=== PATIENT | male | born 1970 | race Caucasian/White ===

== ENCOUNTER 2016-07-05 21:09 | Observation (INO) | payer OTHER ==
[2016-07-05] MEDS ORDERED: SODIUM CHLORIDE 0.9% 1,000 ML IV STA ×2 (21:46)
[2016-07-05] MEDS ORDERED: IPRATROPIUM-ALBUTEROL 3 ML NEB INHALATION STA (21:47)
--- NOTE | 2016-07-05 22:11 | ED ---
General Adult HPI - General Chief complaint: Weakness Stated complaint: enlarged heart sent by [facility] Time Seen by Provider: 07/05/16 21:40 Source: patient, RN notes reviewed, old records reviewed Mode of arrival: ambulatory Limitations: no limitations - History of Present Illness Initial comments: This is a 46-year-old male the ER for evaluation. Patient brought in for evaluation of altered mental status, friends and coworkers thinking that he is responding inappropriately or slow to respond. Patient does admit to history of TIAs and nerve type symptoms secondary to stroke. Patient denies any fevers or chest pain but has been feeling weak and fatigued lately. He does admit to weight gain, shortness of breath, exercise fatigue. Patient denies any medications does admit to being a smoker - Related Data Home Medications Medication Instructions Recorded Confirmed No Known Home Medications [No 07/07/16 07/07/16 Known Home Medications] Allergies Allergy/AdvReac Type Severity Reaction Status Date / Time No Known Allergies Allergy Verified 07/07/16 01:12 Review of Systems ROS Statement: Those systems with pertinent positive or pertinent negative responses have been documented in the HPI. ROS Other: All systems not noted in ROS Statement are negative. Past Medical History Past Medical History: Asthma, CVA/TIA, Sleep Apnea/CPAP/BIPAP Additional Past Medical History / Comment(s): CVA x1, TIA x5 History of Any Multi-Drug Resistant Organisms: None Reported Past Surgical History: No Surgical Hx Reported Past Psychological History: No Psychological Hx Reported Smoking Status: Current every day smoker Past Alcohol Use History: None Reported Past Drug Use History: None Reported - Past Family History Father Family Medical History: Cancer Additional Family Medical History / Comment(s): colon cancer and kidney failure - at 74 General Exam Limitations: no limitations General appearance: alert, in no apparent distress, obese Head exam: Present: atraumatic, normocephalic, normal inspection Eye exam: Present: normal appearance, PERRL, EOMI. Absent: scleral icterus, conjunctival injection, periorbital swelling ENT exam: Present: normal exam, mucous membranes moist Neck exam: Present: normal inspection. Absent: tenderness, meningismus, lymphadenopathy Respiratory exam: Present: normal lung sounds bilaterally. Absent: respiratory distress, wheezes, rales, rhonchi, stridor Cardiovascular Exam: Present: regular rate, normal rhythm, normal heart sounds. Absent: systolic murmur, diastolic murmur, rubs, gallop, clicks GI/Abdominal exam: Present: soft, normal bowel sounds. Absent: distended, tenderness, guarding, rebound, rigid Extremities exam: Present: normal inspection, full ROM, normal capillary refill. Absent: tenderness, pedal edema, joint swelling, calf tenderness Back exam: Present: normal inspection Neurological exam: Present: alert, oriented X3, CN II-XII intact Psychiatric exam: Present: normal affect, normal mood Skin exam: Present: warm, dry, intact, normal color. Absent: rash Course Vital Signs 07/05/16 07/05/16 07/05/16 21:16 22:00 22:16 Temperature 98.0 F Pulse Rate 87 90 90 Pulse Rate [ Right] Respiratory 18 Rate Blood Pressure 166/84 Blood Pressure [Right Arm] O2 Sat by Pulse 94 L Oximetry 07/05/16 07/06/16 07/06/16 22:53 01:22 02:30 Temperature 98.7 F Pulse Rate 87 87 Pulse Rate [ 86 Right] Respiratory 18 18 16 Rate Blood Pressure 129/60 114/59 Blood Pressure 148/78 [Right Arm] O2 Sat by Pulse 95 96 94 L Oximetry 07/06/16 02:53 Temperature 97.6 F Pulse Rate 84 Pulse Rate [ Right] Respiratory 16 Rate Blood Pressure 103/68 Blood Pressure [Right Arm] O2 Sat by Pulse 95 Oximetry EKG Findings - EKG Comments: EKG Findings:: EKG shows normal sinus limited to, HI 144, QRS 90, QTC 443 Medical Decision Making - Medical Decision Making 46 male to the ER for evaluation of weakness fatigue, cardiomegaly, patient be admitted for cardiac observation. Telemetry and serial troponins - Lab Data Result diagrams: 07/06/16 06:41 07/05/16 22:23 Lab Results 07/05/16 07/05/16 07/05/16 Range/Units 22:23 22:23 22:23 WBC 10.1 (3.8-10.6) k/uL RBC 4.66 (4.30-5.90) m/uL Hgb 15.1 (13.0-17.5) gm/dL Hct 42.1 (39.0-53.0) % MCV 90.3 (80.0-100.0) fL MCH 32.3 (25.0-35.0) pg MCHC 35.8 (31.0-37.0) g/dL RDW 12.5 (11.5-15.5) % Plt Count 191 (150-450) k/uL Neutrophils % 63 % Lymphocytes % 29 % Monocytes % 5 % Eosinophils % 1 % Basophils % 0 % Neutrophils # 6.4 (1.3-7.7) k/uL Lymphocytes # 2.9 (1.0-4.8) k/uL Monocytes # 0.5 (0-1.0) k/uL Eosinophils # 0.1 (0-0.7) k/uL Basophils # 0.0 (0-0.2) k/uL PT (9.0-12.0) sec INR (<1.1) APTT (22.0-30.0) sec Sodium 138 (137-145) mmol/L Potassium 3.9 (3.5-5.1) mmol/L Chloride 102 (98-107) mmol/L Carbon Dioxide 25 (22-30) mmol/L Anion Gap 11 mmol/L BUN 12 (9-20) mg/dL Creatinine 0.80 (0.66-1.25) mg/dL Est GFR (MDRD) Af Amer >60 (>60 ml/min/1.73 sqM) Est GFR (MDRD) Non-Af >60 (>60 ml/min/1.73 sqM) Glucose 172 H (74-99) mg/dL Calcium 8.7 (8.4-10.2) mg/dL Phosphorus 3.9 (2.5-4.5) mg/dL Magnesium 1.8 (1.6-2.3) mg/dL Total Bilirubin 0.3 (0.2-1.3) mg/dL AST 24 (17-59) U/L ALT 41 (21-72) U/L Alkaline Phosphatase 94 (38-126) U/L Total Creatine Kinase 175 H (55-170) U/L CK-MB (CK-2) 0.8 (0.0-2.4) ng/mL CK-MB (CK-2) Rel Index 0.5 Troponin I <0.012 (0.000-0.034) ng/mL NT-Pro-B Natriuret Pep pg/mL Total Protein 6.5 (6.3-8.2) g/dL Albumin 3.6 (3.5-5.0) g/dL TSH (0.465-4.680) mIU/L 07/05/16 07/05/16 07/05/16 Range/Units 22:23 22:23 22:23 WBC (3.8-10.6) k/uL RBC (4.30-5.90) m/uL Hgb (13.0-17.5) gm/dL Hct (39.0-53.0) % MCV (80.0-100.0) fL MCH (25.0-35.0) pg MCHC (31.0-37.0) g/dL RDW (11.5-15.5) % Plt Count (150-450) k/uL Neutrophils % % Lymphocytes % % Monocytes % % Eosinophils % % Basophils % % Neutrophils # (1.3-7.7) k/uL Lymphocytes # (1.0-4.8) k/uL Monocytes # (0-1.0) k/uL Eosinophils # (0-0.7) k/uL Basophils # (0-0.2) k/uL PT 9.7 (9.0-12.0) sec INR 0.9 (<1.1) APTT 24.3 (22.0-30.0) sec Sodium (137-145) mmol/L Potassium (3.5-5.1) mmol/L Chloride (98-107) mmol/L Carbon Dioxide (22-30) mmol/L Anion Gap mmol/L BUN (9-20) mg/dL Creatinine (0.66-1.25) mg/dL Est GFR (MDRD) Af Amer (>60 ml/min/1.73 sqM) Est GFR (MDRD) Non-Af (>60 ml/min/1.73 sqM) Glucose (74-99) mg/dL Calcium (8.4-10.2) mg/dL Phosphorus (2.5-4.5) mg/dL Magnesium (1.6-2.3) mg/dL Total Bilirubin (0.2-1.3) mg/dL AST (17-59) U/L ALT (21-72) U/L Alkaline Phosphatase (38-126) U/L Total Creatine Kinase (55-170) U/L CK-MB (CK-2) (0.0-2.4) ng/mL CK-MB (CK-2) Rel Index Troponin I (0.000-0.034) ng/mL NT-Pro-B Natriuret Pep 24 pg/mL Total Protein (6.3-8.2) g/dL Albumin (3.5-5.0) g/dL TSH 1.740 (0.465-4.680) mIU/L - Radiology Data Radiology results: report reviewed (Chest x-ray does redemonstrate mild cardiomegaly), image reviewed Critical Care Time Critical Care Time: Yes Total Critical Care Time: 31 Disposition Clinical Impression: Chest pain Disposition: ADMITTED IP TO THIS [facility] Condition: Good
[2016-07-05] MEDS ORDERED: HEPARIN SODIUM,PORCINE 5,000 UNIT/ML 1 ML VIAL IV ONE (22:45)
[2016-07-05] MEDS ORDERED: HEPARIN SODIUM,PORCINE/D5W PMX 25,000 UNIT in DEXTROSE/WATER 1 500ML.BAG IV SCH (22:45)
[2016-07-05] MEDS ORDERED: ASPIRIN 81 MG CHEW PO STA (22:45)
[2016-07-05] MEDS ORDERED: HEPARIN SODIUM,PORCINE 5,000 UNIT/ML 1 ML VIAL IV PRN (22:45)
[2016-07-05] MEDS ORDERED: NITROGLYCERIN SL TABS 0.4 MG TAB SUBLINGUAL PRN (22:45)
--- NOTE | 2016-07-05 22:54 | XR ---
EXAMINATION TYPE: XR chest 2V DATE OF EXAM: 07/05/2016 10:43 PM COMPARISON: NONE HISTORY: Weakness TECHNIQUE: Frontal and lateral views of the chest are obtained. FINDINGS: Heart and mediastinum are normal. Lungs are clear. Diaphragm is normal. Bony thorax is int act. IMPRESSION: Normal chest.
[2016-07-05 23:20] LABS: Basophils % (A) 0 %; CH 32.2; CHCM 35.8; Eosinophils # (A) 0.1 k/uL (0-0.7); Eosinophils % (A) 1 %; HCT 42.1 % (39.0-53.0); HDW 2.77; HGB 15.1 gm/dL (13.0-17.5); Luc # (Auto) 0.17; Luc % (Auto) 2; Lymphocytes # (A) 2.9 k/uL (1.0-4.8); Lymphocytes % (A) 29 %; MCH 32.3 pg (25.0-35.0); MCHC 35.8 g/dL (31.0-37.0); MCV 90.3 fL (80.0-100.0); Mean Platelet Volume 7.2; Monocytes # (A) 0.5 k/uL (0-1.0); Monocytes % (A) 5 %; Neutrophils # (A) 6.4 k/uL (1.3-7.7); Neutrophils % (A) 63 %; RBC 4.66 m/uL (4.30-5.90); RDW 12.5 % (11.5-15.5); WBC 10.1 k/uL (3.8-10.6); WBC (Perox) 9.49
[2016-07-05 23:30] LABS: Partial Thromboplastin Time 24.3 sec (22.0-30.0)
[2016-07-05 23:33] LABS: ALT 41 U/L (21-72); AST 24 U/L (17-59); Alkaline Phosphatase 94 U/L (38-126); Anion Gap 11 mmol/L; Blood Urea Nitrogen 12 mg/dL (9-20); Calcium 8.7 mg/dL (8.4-10.2); Carbon Dioxide 25 mmol/L (22-30); Chloride 102 mmol/L (98-107); Glucose 172 mg/dL (74-99); Magnesium 1.8 mg/dL (1.6-2.3); Non-African American GFR(MDRD) >60 (>60 ml/min/1.73 sqM); Phosphorous 3.9 mg/dL (2.5-4.5); Potassium 3.9 mmol/L (3.5-5.1); Sodium 138 mmol/L (137-145); Total Bilirubin 0.3 mg/dL (0.2-1.3); Total Protein 6.5 g/dL (6.3-8.2)
[2016-07-05 23:34] LABS: INR 0.9 (<1.1); Prothrombin Time 9.7 sec (9.0-12.0)
[2016-07-05 23:41] LABS: Creatine Kinase 175 U/L (55-170)
[2016-07-05 23:55] LABS: Creatine Kinase MB 0.8 ng/mL (0.0-2.4); Troponin I <0.012 ng/mL (0.000-0.034)
[2016-07-06] MEDS ORDERED: NALOXONE 0.4 MG/ML 1 ML VIAL IV PRN (02:11)
[2016-07-06 03:32] VITALS: BMI 56.2
[2016-07-06 07:28] LABS: Cholesterol 133 mg/dL (<200); HDL Cholesterol 25 mg/dL (40-60); Triglycerides 366 mg/dL (<150)
[2016-07-06 07:43] LABS: Creatine Kinase 162 U/L (55-170)
[2016-07-06 07:54] LABS: Creatine Kinase MB 0.9 ng/mL (0.0-2.4); Troponin I <0.012 ng/mL (0.000-0.034)
[2016-07-06 08:01] LABS: Mean Platelet Volume 8.7
[2016-07-06] MEDS ORDERED: ATORVASTATIN 80 MG TAB PO SCH (09:00)
[2016-07-06 11:56] LABS: Creatine Kinase 142 U/L (55-170)
[2016-07-06 12:00] LABS: Creatine Kinase MB 0.8 ng/mL (0.0-2.4); Troponin I <0.012 ng/mL (0.000-0.034)
--- NOTE | 2016-07-06 12:24 | P.CRDCN ---
History of Present Illness Consult date: 07/06/16 History of present illness: This is a 46-year-old gentleman who apparently was still confused and having some difficulty with his speech and dizzy. His coworker was concerned and was brought to the emergency room. Patient claims that he had a previous TIA. Patient is very sleepy but arousable. He denies any chest pain, shortness of breath or palpitations. His EKGs are normal. Cardiac enzymes are negative. Patient may need a neurology evaluation for possible TIA. No further cardiac workup at this time. If neurologist feels that he had a history of TIA and there is no source or cause for that, further evaluation may be considered. Review of Systems As per the chart Past Medical History Past Medical History: Asthma, CVA/TIA, Sleep Apnea/CPAP/BIPAP Additional Past Medical History / Comment(s): CVA x1, TIA x5 History of Any Multi-Drug Resistant Organisms: None Reported Past Surgical History: No Surgical Hx Reported Additional Past Anesthesia/Blood Transfusion Reaction / Comment(s): no surgeries Past Psychological History: No Psychological Hx Reported Smoking Status: Current every day smoker Past Alcohol Use History: None Reported Past Drug Use History: None Reported - Past Family History Father Family Medical History: Cancer Additional Family Medical History / Comment(s): colon cancer and kidney failure - at 74 Medications and Allergies Home Medications Medication Instructions Recorded Confirmed Type Albuterol Inhaler [Ventolin Hfa 1 - 2 puff INHALATION RT-QID PRN 07/05/16 History Inhaler] Aspirin 325 mg PO DAILY 07/05/16 07/05/16 History Allergies Allergy/AdvReac Type Severity Reaction Status Date / Time No Known Allergies Allergy Verified 07/05/16 22:22 Physical Exam Vitals: Vital Signs Temp Pulse Pulse Pulse Resp BP BP 07/06/16 08:00 98.2 F 84 18 117/74 07/06/16 04:00 97.8 F 84 16 07/06/16 03:41 89 16 07/06/16 02:53 97.6 F 84 16 103/68 07/06/16 02:30 98.7 F 86 16 BP Pulse Ox 07/06/16 08:00 94 L 07/06/16 04:00 119/82 93 L 07/06/16 03:41 07/06/16 02:53 95 07/06/16 02:30 148/78 94 L Intake and Output 07/05/16 07/06/16 07/06/16 22:59 06:59 14:59 Other: Voiding Method Toilet Toilet # Voids 2 Weight 188.241 kg GENERAL EXAM: Patient is alert and oriented and doesn't appear to be in any acute distress HEENT: Normocephalic. Normal reaction of pupils, equal size, normal range of extraocular motion. No erythema or exudates in the throat. NECK: No masses, no nuchal rigidity. CHEST: No chest wall deformity. LUNGS: Equal air entry with no crackles or wheeze. HEART: S1 and S2 normal with no audible mumurs or gallops. Regular rhythm, femorals equal on both sides.. ABDOMEN: No hepatosplenomegaly, normal bowel sounds, no guarding or rigidity. SKIN: No rashes CENTRAL NERVOUS SYSTEM: No focal deficits. EXTREMITIES: No cyanosis, clubbing or edema. Results 07/06/16 06:41 07/05/16 22:23 Cardiac Enzymes 07/06/16 07/06/16 Range/Units 06:41 10:57 CK-MB (CK-2) 0.9 0.8 (0.0-2.4) ng/mL Troponin I <0.012 <0.012 (0.000-0.034) ng/mL Coagulation 07/06/16 Range/Units 06:41 APTT 25.3 (22.0-30.0) sec Lipids 07/06/16 Range/Units 06:41 Triglycerides 366 H (<150) mg/dL Cholesterol 133 (<200) mg/dL HDL Cholesterol 25 L (40-60) mg/dL CBC 07/06/16 Range/Units 06:41 Plt Count 72 L D (150-450) k/uL Current Medications Generic Name Dose Route Start Last Admin Trade Name Freq PRN Reason Stop Dose Admin Aspirin 325 mg 07/07/16 09:00 Aspirin PO DAILY [facility] Atorvastatin Calcium 80 mg 07/06/16 09:00 Lipitor PO DAILY [facility] Heparin Sodium (Porcine) 0 unit 07/05/16 22:45 Heparin IV Q6HR PRN Low PTT Protocol Heparin Sodium/Dextrose 25,000 500 mls @ 20.33 mls/hr 07/05/16 22:45 01:10 unit/ IV Solution IV 5.31 units/kg/hr .Q24H LAVELL 20 mls/hr Protocol Administration 5.4 UNITS/KG/HR Naloxone HCl 0.2 mg 07/06/16 02:11 Narcan IV Q2M PRN Opioid Reversal Nitroglycerin 0.4 mg 07/05/16 22:45 Nitrostat SUBLINGUAL Q5M PRN Chest Pain Intake and Output 07/05/16 07/06/16 07/06/16 22:59 06:59 14:59 Other: Voiding Method Toilet Toilet # Voids 2 Weight 188.241 kg 07/06/16 06:41 EKG Interpretations (text) Sinus rhythm Assessment and Plan (1) Altered mental status Status: Acute (2) Dizziness Status: Acute (3) History of TIA (transient ischemic attack) Status: Acute Plan: I recommend a neurology evaluation. If there is a real TIA and no causes established, patient may be considered for long-term monitoring and also [facility]. No further cardiac workup at this time until neurology evaluation is done. We' ll follow as needed
[2016-07-06 16:42] VITALS: PULSE 93
[2016-07-06] MEDS ORDERED: AMOXIC-POT CLAV 875-125MG 1 EACH TAB PO STA (18:38)
[2016-07-06 19:49] VITALS: BP 138/80; RESP 18; TEMP 98
--- NOTE | 2016-07-07 08:16 | HP ---
DATE OF ADMISSION: 07/06/2016 CHIEF COMPLAINT: Dizziness, tiredness, and short of breath. HISTORY OF PRESENT ILLNESS: Mr. Goode is a 46-year-old male with a known history of obstructive sleep apnea on CPAP at home, morbid obesity, nicotine addiction, history of multiple transient ischemic attacks in the past, with work-up negative about a year back including [facility]. He came to the hospital with complaints of generalized weakness and tiredness since last Saturday. Patient apparently has been sick for the past one week and is just recovering from an upper respiratory infection at home. Patient went to the clinic where he had a chest x-ray and was told that he had cardiomegaly and was referred to the hospital. The chest x-ray here does not show any cardiomegaly. Otherwise, denied any fever or chills. No nausea or vomiting. Patient did complain of earache and off balance while in the ER. He was admitted to the hospital for further neurological evaluation. The patient denied any recent travel or sick contacts at home. PAST MEDICAL HISTORY: Asthma, cerebrovascular accident/transient ischemic attack with no residual weakness. History of sleep apnea, on CPAP at home, morbid obesity. PAST SURGICAL HISTORY: None. SOCIAL HISTORY: Patient is currently an everyday smoker, smokes about 1/2 pack per day. Denied alcohol, drugs or IVDU. FAMILY HISTORY: Denied any history of hypertension, premature heart disease in the family or diabetes mellitus. ALLERGIES: No known drug allergies. Home medications include albuterol inhaler and aspirin. PHYSICAL EXAMINATION: A 46-year-old male, morbidly obese, lying in the bed comfortably, awake, alert, oriented, x3, appears to be in no apparent distress. VITALS: Blood pressure is 129/69, pulse is 86, respirations 18, temperature afebrile, pulse ox 92% on room air. HEENT: Atraumatic, normocephalic. NECK: Supple. No JVD. CVS: S1, S2 heard. No murmurs or gallops. LUNGS: Bilateral air entry is present. Rhonchi positive. Nonlabored breathing. ABDOMEN: Soft, nontender. Bowel sounds present. [employer] SAL[employer] REPRESENTATIVE: Awake, alert, oriented x3. No focal deficits. EXTREMITIES: No. No clubbing or cyanosis. PSYCHIATRIC: Cooperative. LABORATORY DATA: WBC 10.1, hemoglobin 17.1, platelets 191, INR 0.9, sodium 138, potassium 3.9, chloride 102, bicarb is 25. BUN 12, creatinine 0.80. Blood sugar 172. Liver enzymes are not elevated. Troponin x3 negative. NT-proBNP 24, triglyceride 366, LDL is 35, ( ) 1.7. IMPRESSION: 1. Generalized weakness and tiredness, likely sequelae from previous upper respiratory infection. 2. Acute tracheobronchitis and possible sinusitis. 3. Morbid obesity. 4. Nicotine addiction. 5. History of cerebrovascular accident x1. 6. History of transient ischemic attack x5. 7. Obstructive sleep apnea on CPAP at home. DISCUSSION AND PLAN: Patient will be continued on telemetry monitoring. The patient will be started on antibiotics in the form of Augmentin. Her symptoms are unlikely due to transient ischemic attack. No focal neurologic deficit is noted. Further recommendations based on the clinical course.
[2016-07-07] MEDS ORDERED: ASPIRIN 325 MG TAB PO SCH (09:00)
--- NOTE | 2016-07-07 16:06 | DS ---
DATE OF ADMISSION: 07/06/2016 DATE OF DISCHARGE: 07/06/2016 DISCHARGE DIAGNOSES: 1. Acute metabolic encephalopathy possibly due to infection. 2. Acute tracheobronchitis and possible sinusitis. 3. Earache and off balance. 4. Recent URI. 5. Generalized weakness and tiredness unlikely transient ischemic attack. 6. Nicotine addiction. 7. History of transient ischemic attack and cerebrovascular accident history in the past. No residual weakness. 8. Morbid obesity. 9. Obstructive sleep apnea on CPAP at home. HOSPITAL COURSE: Mr. Goode is a 46 -year-old male with the above medical problems admitted to hospital with generalized weakness and tiredness and also the patient is recovering from recent upper respiratory tract infection. Patient did complain of earache as well and off balance here in the ER. Admitted to the hospital for evaluation by cardiology and chest x-ray showed no cardiomegaly, as he was told at the urgent care center. Otherwise, the patient was on tele monitoring. Serial EKGs and troponins are negative. Patient does have elevated triglycerides. Patient was advised to do some exercise and patient was started on antibiotics in the form of Augmentin. Patient felt better. He will be discharged to complete antibiotic course and the patient was counselled extensively for smoking cessation and follow-up with his primary care physician in 1 to 3 days. Patient stable for discharge home. DISCHARGE PHYSICAL EXAMINATION: 46 -year-old male lying in bed comfortably. Awake, alert, oriented times three. Appears to be in no apparent distress. VITALS: Blood pressure 129/79, pulse is 93, respirations 16, temperature afebrile, pulse ox 93% on room air. LABORATORY DATA: Reviewed. Discharge physical examination done. DISCHARGE MEDICATIONS include: 1. Augmentin 875/125, 1 tablet p.o. q.12 hourly pain for 7 days. 2. Albuterol inhaler 2 puffs q.6 hourly p.r.n. for short of breath. 3. Decreased aspirin 325 mg p.o. daily. Patient will be discharged home in stable condition. Activity as tolerated. Heart healthy diet. Follow with primary care physician Audrey Bai.
== END 2016-07-06 07:45 | disposition home or self-care (01) ==
LOC: EC 21:09 → 3OBS 07-06 02:11
PROVIDERS: ADMIT Hospitalist; ATTEND Hospitalist
DX: G93.41 Metabolic encephalopathy (principal); J20.9 Acute bronchitis, unspecified; H92.09 Otalgia, unspecified ear; J45.909 Unspecified asthma, uncomplicated; F17.200 Nicotine dependence, unspecified, uncomplicated; E66.01 Morbid (severe) obesity due to excess calories; Z68.43 Body mass index [BMI] 50.0-59.9, adult; G47.33 Obstructive sleep apnea (adult) (pediatric); Z99.89 Dependence on other enabling machines and devices; Z86.73 Personal history of transient ischemic attack (TIA), and cerebral infarction without residual deficits; Z79.82 Long term (current) use of aspirin; E78.1 Pure hyperglyceridemia
CPT/HCPCS: 96376 ×2; 96360; 96361 ×4; 96365 ×2; 96366 ×2; 99291; 36415; 94640; 93005; 83880; 80061; 80053; 84443; 82550 ×2; 82553 ×2; 83735; 84100; 84484 ×2; 85025; 85049; 85610; 85730 ×2; 71020; G0378; J1644 ×2

== ENCOUNTER 2016-07-07 01:06 | Emergency (ER) | payer OTHER ==
[2016-07-07 01:12] VITALS: BP 141/66; PULSE 89; RESP 20; TEMP 98.2
[2016-07-07] MEDS ORDERED: TOPICAL SKIN ADHESIVE 1 EACH AMP TOPICAL ONE (01:49)
--- NOTE | 2016-07-07 01:53 | ED ---
Wound/Laceration HPI - General Chief Complaint: Wound/Laceration Stated Complaint: arm lac Time Seen by Provider: 07/07/16 01:31 Source: patient, RN notes reviewed Mode of arrival: ambulatory Limitations: no limitations - History of Present Illness Initial Comments: Patient is a 46-year-old male chief complaint of right elbow laceration after hitting it on a cabinet. He states tetanus is up-to-date. Patient states that he was recently discharged after receiving IV heparin for NSTEMI yesterday. Patient states he does not know how deep the cut is. States it continued to bleed through multiple gauze pads. - Related Data Home Medications Medication Instructions Recorded Confirmed No Known Home Medications [No 07/07/16 07/07/16 Known Home Medications] Allergies Allergy/AdvReac Type Severity Reaction Status Date / Time No Known Allergies Allergy Verified 07/07/16 01:12 Review of Systems ROS Statement: Those systems with pertinent positive or pertinent negative responses have been documented in the HPI. ROS Other: All systems not noted in ROS Statement are negative. Past Medical History Past Medical History: Asthma, CVA/TIA, Sleep Apnea/CPAP/BIPAP Additional Past Medical History / Comment(s): CVA x1, TIA x5 History of Any Multi-Drug Resistant Organisms: None Reported Past Surgical History: No Surgical Hx Reported Additional Past Anesthesia/Blood Transfusion Reaction / Comment(s): no surgeries Past Psychological History: No Psychological Hx Reported Smoking Status: Current every day smoker Past Alcohol Use History: None Reported Past Drug Use History: None Reported - Past Family History Father Family Medical History: Cancer Additional Family Medical History / Comment(s): colon cancer and kidney failure - at 74 General Exam - General Exam Comments Initial Comments: Pleasant morbidly obese 46 year old male, no distress. Limitations: no limitations General appearance: alert, in no apparent distress Head exam: Present: atraumatic, normocephalic, normal inspection Eye exam: Present: normal appearance, PERRL, EOMI. Absent: scleral icterus, conjunctival injection, periorbital swelling ENT exam: Present: normal exam, mucous membranes moist Neck exam: Present: normal inspection. Absent: tenderness, meningismus, lymphadenopathy Respiratory exam: Present: normal lung sounds bilaterally. Absent: respiratory distress, wheezes, rales, rhonchi, stridor Cardiovascular Exam: Present: regular rate, normal rhythm, normal heart sounds. Absent: systolic murmur, diastolic murmur, rubs, gallop, clicks GI/Abdominal exam: Present: soft, normal bowel sounds. Absent: distended, tenderness, guarding, rebound, rigid Extremities exam: Present: normal inspection, full ROM, normal capillary refill , other (1 cm laceration on left elbow. ). Absent: tenderness, pedal edema, joint swelling, calf tenderness Back exam: Present: normal inspection Neurological exam: Present: alert, oriented X3, CN II-XII intact Psychiatric exam: Present: normal affect, normal mood Skin exam: Present: warm, dry, intact, normal color. Absent: rash Course Vital Signs 07/07/16 01:09 Temperature 98.2 F Pulse Rate 89 Respiratory 20 Rate Blood Pressure 141/66 O2 Sat by Pulse 93 L Oximetry Medical Decision Making - Medical Decision Making Patient is a 46-year-old male chief complaint of right elbow laceration after hitting it on a cabinet. He states tetanus is up-to-date. Patient states that he was recently discharged after receiving IV heparin for NSTEMI yesterday. Patient laceration measures 1cm. Bleeding controlled at this time. Wound was cleaned. Patient wound closed with dermabond, discussed keeping it covered. Discussed monitor for signs of infection. Patient agrees to treatment plan and will comply. Disposition Clinical Impression: Forearm laceration Disposition: HOME SELF-CARE Condition: Good Instructions: Skin Adhesive Care (ED) Additional Instructions: Please leave wound covered for the first 24-48 hours and then leave open to air after that time. Please use clean soap and water. Please watch for any signs of infection which may include but not limited to increased pain, swelling , redness, fever or chills. Please return to the emergency room if any signs of infection do occur. Please return to the emergency room for any other concerns or complications. Referrals: Audrey Bai MD [Primary Care Provider] - 1-2 days Time of Disposition: 01:52
== END 2016-07-07 02:10 | disposition home or self-care (01) ==
LOC: EC 01:06
DX: S51.811A Laceration without foreign body of right forearm, initial encounter (principal); F17.200 Nicotine dependence, unspecified, uncomplicated; W22.03XA Walked into furniture, initial encounter; Y92.009 Unspecified place in unspecified non-institutional (private) residence as the place of occurrence of the external cause
CPT/HCPCS: 99282

== ENCOUNTER 2016-07-25 21:18 | Inpatient (IN) | payer OTHER ==
[2016-07-25 22:46] LABS: Basophils # (A) 0.1 k/uL (0-0.2); Basophils % (A) 1 %; CH 32.6; CHCM 34.8; Eosinophils # (A) 0.1 k/uL (0-0.7); Eosinophils % (A) 1 %; HCT 46.3 % (39.0-53.0); HDW 2.48; HGB 15.6 gm/dL (13.0-17.5); Luc # (Auto) 0.21; Luc % (Auto) 2; Lymphocytes # (A) 2.9 k/uL (1.0-4.8); Lymphocytes % (A) 22 %; MCH 31.7 pg (25.0-35.0); MCHC 33.7 g/dL (31.0-37.0); MCV 94.1 fL (80.0-100.0); Mean Platelet Volume 6.6; Monocytes # (A) 0.6 k/uL (0-1.0); Monocytes % (A) 5 %; Neutrophils # (A) 9.2 k/uL (1.3-7.7); Neutrophils % (A) 70 %; RBC 4.92 m/uL (4.30-5.90); RDW 12.8 % (11.5-15.5); WBC 13.1 k/uL (3.8-10.6); WBC (Perox) 12.53
[2016-07-25 22:54] LABS: Partial Thromboplastin Time 23.6 sec (22.0-30.0); Prothrombin Time 9.9 sec (9.0-12.0)
--- NOTE | 2016-07-25 22:57 | CT ---
EXAM: CT Head Without Intravenous Contrast CLINICAL HISTORY: Reason: Neuro Deficits TECHNIQUE: Axial computed tomography images of the head/brain without intravenous contrast. CTDI is 60.3 mGy and DLP is 1144.7 mGy-cm This CT exam was performed using one or more of the following dose reduction techniques: automated exposure control, adjustment of the mA and/or kV according to patient size, and/or use of iterative reconstruction technique. Coronal and sagittal reformatted images were created and reviewed. COMPARISON: No relevant prior studies available. FINDINGS: Brain: Old right basal ganglia infarct. No evolving territorial infarction. Mild chronic small vessel ischemic change. No hemorrhage. No mass effect or edema. Ventricles: Unremarkable. No ventriculomegaly. Bones/joints: Unremarkable. No acute fracture. Soft tissues: Unremarkable. Sinuses: Unremarkable as visualized. No acute sinusitis. Mastoid air cells: Unremarkable as visualized. No mastoid effusion. IMPRESSION: Old right basal ganglia infarct. No acute intracranial abnormality.
[2016-07-25 23:01] LABS: ALT 43 U/L (21-72); AST 22 U/L (17-59); Alkaline Phosphatase 88 U/L (38-126); Anion Gap 9 mmol/L; Blood Urea Nitrogen 15 mg/dL (9-20); Calcium 8.7 mg/dL (8.4-10.2); Carbon Dioxide 28 mmol/L (22-30); Chloride 102 mmol/L (98-107); Glucose 155 mg/dL (74-99); Non-African American GFR(MDRD) >60 (>60 ml/min/1.73 sqM); Potassium 4.1 mmol/L (3.5-5.1); Sodium 139 mmol/L (137-145); Total Bilirubin 0.4 mg/dL (0.2-1.3)
[2016-07-25 23:03] LABS: Creatine Kinase 116 U/L (55-170)
[2016-07-25 23:16] LABS: Creatine Kinase MB 0.6 ng/mL (0.0-2.4); Troponin I <0.012 ng/mL (0.000-0.034)
--- NOTE | 2016-07-25 23:24 | XR ---
EXAM: XR Chest, 2 Views CLINICAL HISTORY: Reason: altered mental status TECHNIQUE: Frontal and lateral views of the chest. COMPARISON: CXR 07/05/16 FINDINGS: Lungs: Unremarkable. No consolidation. Pleural space: Unremarkable. No pneumothorax. Heart: Unremarkable. No cardiomegaly. Mediastinum: Unremarkable. Bones/joints: Unremarkable. IMPRESSION: Unremarkable chest x-rays.
[2016-07-25] MEDS ORDERED: ALPRAZolam 0.25 MG TAB PO PRN (23:47)
[2016-07-25] MEDS ORDERED: ACETAMINOPHEN TAB 500 MG TAB PO PRN (23:47)
--- NOTE | 2016-07-25 23:49 | ED ---
Eye Problem HPI - General Chief complaint: Eye Problems Stated complaint: Eye Problem Time Seen by Provider: 07/25/16 22:00 Source: patient, RN notes reviewed Mode of arrival: ambulatory Limitations: no limitations - History of Present Illness Initial comments: This is a 46-year-old male with a history of sick CVA is noted past who presents with complaints of waking up this way with double vision. He states when he went to bed last evening around 2 AM he was fine when he woke up at 8 AM this morning he had double vision with certain eye movements. He states with each eye individually time when he puts both eyes together he has blurry vision he denies any loss of function is upper or lower extremities is no other complaints at this time no fevers chills sweats no trauma no headaches. chief complaint: vision change - Related Data Home Medications Medication Instructions Recorded Confirmed Aspirin 325 mg PO DAILY 07/25/16 07/25/16 Azithromycin [Zithromax] 250 mg PO DIRECTED 07/25/16 07/25/16 Omeprazole 20 mg PO AC-BID 07/25/16 07/25/16 Allergies Allergy/AdvReac Type Severity Reaction Status Date / Time heparin AdvReac passed out Verified 07/25/16 22:09 Review of Systems ROS Statement: Those systems with pertinent positive or pertinent negative responses have been documented in the HPI. ROS Other: All systems not noted in ROS Statement are negative. Past Medical History Past Medical History: Asthma, CVA/TIA, Sleep Apnea/CPAP/BIPAP Additional Past Medical History / Comment(s): CVA x1, TIA x5 History of Any Multi-Drug Resistant Organisms: None Reported Past Surgical History: No Surgical Hx Reported Additional Past Anesthesia/Blood Transfusion Reaction / Comment(s): no surgeries Past Psychological History: No Psychological Hx Reported Smoking Status: Current every day smoker Past Alcohol Use History: None Reported Past Drug Use History: None Reported - Past Family History Father Family Medical History: Cancer Additional Family Medical History / Comment(s): colon cancer and kidney failure - at 74 General Exam - General Exam Comments Initial Comments: This is a well-developed well-nourished obese male he is awake alert oriented 3 Limitations: no limitations General appearance: alert, in no apparent distress Head exam: Present: atraumatic, normocephalic, normal inspection Eye exam: Present: normal appearance, PERRL, EOMI. Absent: scleral icterus, conjunctival injection, periorbital swelling ENT exam: Present: normal exam, mucous membranes moist Neck exam: Present: normal inspection. Absent: tenderness, meningismus, lymphadenopathy Respiratory exam: Present: normal lung sounds bilaterally. Absent: respiratory distress, wheezes, rales, rhonchi, stridor Cardiovascular Exam: Present: regular rate, normal rhythm, normal heart sounds. Absent: systolic murmur, diastolic murmur, rubs, gallop, clicks GI/Abdominal exam: Present: soft, normal bowel sounds, other (Obese abdomen). Absent: distended, tenderness, guarding, rebound, rigid Extremities exam: Present: normal inspection, full ROM, normal capillary refill. Absent: tenderness, pedal edema, joint swelling, calf tenderness Back exam: Present: normal inspection Neurological exam: Present: alert, oriented X3, CN II-XII intact, other (He does demonstrate double vision was seen in horizontal finger a little bit higher partially in the left eye the bit lower in the right eye. Otherwise no other abnormalities. ) Psychiatric exam: Present: normal affect, normal mood Skin exam: Present: warm, dry, intact, normal color. Absent: rash Course Vital Signs 07/25/16 21:26 Temperature 97.8 F Pulse Rate 93 Respiratory 18 Rate Blood Pressure 131/87 O2 Sat by Pulse 96 Oximetry Medical Decision Making - Medical Decision Making I did discuss findings with the patient and with Dr. Tran who did come to the emergency department to see the patient patient be admitted evidence of a CVA no intervention is indicated at this time. Neurology will be consulted. - Lab Data Result diagrams: 07/25/16 22:34 07/25/16 22:34 Lab Results 07/25/16 07/25/16 07/25/16 Range/Units 22:34 22:34 22:34 WBC 13.1 H (3.8-10.6) k/uL RBC 4.92 (4.30-5.90) m/uL Hgb 15.6 (13.0-17.5) gm/dL Hct 46.3 (39.0-53.0) % MCV 94.1 (80.0-100.0) fL MCH 31.7 (25.0-35.0) pg MCHC 33.7 (31.0-37.0) g/dL RDW 12.8 (11.5-15.5) % Plt Count 222 D (150-450) k/uL Neutrophils % 70 % Lymphocytes % 22 % Monocytes % 5 % Eosinophils % 1 % Basophils % 1 % Neutrophils # 9.2 H (1.3-7.7) k/uL Lymphocytes # 2.9 (1.0-4.8) k/uL Monocytes # 0.6 (0-1.0) k/uL Eosinophils # 0.1 (0-0.7) k/uL Basophils # 0.1 (0-0.2) k/uL PT (9.0-12.0) sec INR (<1.1) APTT (22.0-30.0) sec Sodium 139 (137-145) mmol/L Potassium 4.1 (3.5-5.1) mmol/L Chloride 102 (98-107) mmol/L Carbon Dioxide 28 (22-30) mmol/L Anion Gap 9 mmol/L BUN 15 (9-20) mg/dL Creatinine 0.88 (0.66-1.25) mg/dL Est GFR (MDRD) Af Amer >60 (>60 ml/min/1.73 sqM) Est GFR (MDRD) Non-Af >60 (>60 ml/min/1.73 sqM) Glucose 155 H (74-99) mg/dL Calcium 8.7 (8.4-10.2) mg/dL Total Bilirubin 0.4 (0.2-1.3) mg/dL AST 22 (17-59) U/L ALT 43 (21-72) U/L Alkaline Phosphatase 88 (38-126) U/L Total Creatine Kinase 116 (55-170) U/L CK-MB (CK-2) 0.6 (0.0-2.4) ng/mL CK-MB (CK-2) Rel Index 0.5 Troponin I <0.012 (0.000-0.034) ng/mL Total Protein 7.0 (6.3-8.2) g/dL Albumin 3.9 (3.5-5.0) g/dL 07/25/16 Range/Units 22:34 WBC (3.8-10.6) k/uL RBC (4.30-5.90) m/uL Hgb (13.0-17.5) gm/dL Hct (39.0-53.0) % MCV (80.0-100.0) fL MCH (25.0-35.0) pg MCHC (31.0-37.0) g/dL RDW (11.5-15.5) % Plt Count (150-450) k/uL Neutrophils % % Lymphocytes % % Monocytes % % Eosinophils % % Basophils % % Neutrophils # (1.3-7.7) k/uL Lymphocytes # (1.0-4.8) k/uL Monocytes # (0-1.0) k/uL Eosinophils # (0-0.7) k/uL Basophils # (0-0.2) k/uL PT 9.9 (9.0-12.0) sec INR 1.0 (<1.1) APTT 23.6 (22.0-30.0) sec Sodium (137-145) mmol/L Potassium (3.5-5.1) mmol/L Chloride (98-107) mmol/L Carbon Dioxide (22-30) mmol/L Anion Gap mmol/L BUN (9-20) mg/dL Creatinine (0.66-1.25) mg/dL Est GFR (MDRD) Af Amer (>60 ml/min/1.73 sqM) Est GFR (MDRD) Non-Af (>60 ml/min/1.73 sqM) Glucose (74-99) mg/dL Calcium (8.4-10.2) mg/dL Total Bilirubin (0.2-1.3) mg/dL AST (17-59) U/L ALT (21-72) U/L Alkaline Phosphatase (38-126) U/L Total Creatine Kinase (55-170) U/L CK-MB (CK-2) (0.0-2.4) ng/mL CK-MB (CK-2) Rel Index Troponin I (0.000-0.034) ng/mL Total Protein (6.3-8.2) g/dL Albumin (3.5-5.0) g/dL - Radiology Data Radiology results: report reviewed (Review the x-ray shows no acute findings. CT shows old right basal ganglia infarct no acute abnormalities.), image reviewed Disposition Clinical Impression: CVA (cerebral vascular accident) Disposition: ADMITTED IP TO THIS HOSP Condition: Stable
[2016-07-26 06:35] LABS: Basophils # (A) 0.1 k/uL (0-0.2); Basophils % (A) 1 %; CH 32.5; CHCM 34.2; Eosinophils # (A) 0.1 k/uL (0-0.7); Eosinophils % (A) 1 %; HCT 45.8 % (39.0-53.0); HDW 2.49; HGB 15.2 gm/dL (13.0-17.5); Luc # (Auto) 0.15; Luc % (Auto) 1; Lymphocytes # (A) 2.6 k/uL (1.0-4.8); Lymphocytes % (A) 24 %; MCH 31.6 pg (25.0-35.0); MCHC 33.2 g/dL (31.0-37.0); MCV 95.3 fL (80.0-100.0); Mean Platelet Volume 6.5; Monocytes # (A) 0.5 k/uL (0-1.0); Monocytes % (A) 4 %; Neutrophils # (A) 7.4 k/uL (1.3-7.7); Neutrophils % (A) 68 %; RBC 4.81 m/uL (4.30-5.90); RDW 12.9 % (11.5-15.5); WBC 10.8 k/uL (3.8-10.6)
[2016-07-26 06:50] LABS: Anion Gap 10 mmol/L; Blood Urea Nitrogen 16 mg/dL (9-20); Calcium 8.6 mg/dL (8.4-10.2); Carbon Dioxide 27 mmol/L (22-30); Chloride 104 mmol/L (98-107); Cholesterol 155 mg/dL (<200); Glucose 126 mg/dL (74-99); HDL Cholesterol 28 mg/dL (40-60); Non-African American GFR(MDRD) >60 (>60 ml/min/1.73 sqM); Potassium 4.2 mmol/L (3.5-5.1); Sodium 141 mmol/L (137-145); Triglycerides 231 mg/dL (<150)
[2016-07-26] MEDS ORDERED: NON-FORMULARY DRUG (Omeprazole [Omeprazole] 20 MG) PO SCH (07:30)
[2016-07-26] MEDS ORDERED: ASPIRIN 325 MG TAB PO SCH (09:00)
--- NOTE | 2016-07-26 09:20 | HP ---
DATE OF ADMISSION: CHIEF COMPLAINT: Difficulty in vision on the right eye. HISTORY OF PRESENT ILLNESS: This 46-year-old gentleman with a past medical history of multiple medical problems being followed by Dr. Audrey Bai in the outpatient setting had past medical history of multiple strokes, history of CVA, TIA, asthma, sleep apnea. The patient apparently continues to smoke and patient is complaining of significant visual loss on the right eye after waking up today and the patient came to [facility] and admitted for further evaluation and treatment. A CAT scan of the brain was done, which showed old right basal ganglia infarct and no acute abnormality. A chest x-ray was also done which is unremarkable. There is no history of fever, rigors or chills. No history of headache, loss of consciousness or seizures. PAST MEDICAL HISTORY: History of multiple CVA, TIA, asthma, sleep apnea, obesity. Medications prior to admission include home medications : 1. Zithromax 250 mg p.r.n. 2. Omeprazole 20 mg b.i.d. 3. Aspirin 325 mg daily. ALLERGIES: HEPARIN. FAMILY HISTORY: History of cancer, colon cancer, kidney failure. SOCIAL HISTORY: History of continued ongoing smoking. No history of alcohol intake. REVIEW OF SYSTEMS: ENT: As mentioned earlier. CARDIOVASCULAR: No angina or palpitations. RESPIRATORY: No cough. GI: No nausea. : No dysuria. NERVOUS SYSTEM: No numbness or weakness. ALLERGY/IMMUNOLOGY: No asthma or hayfever. MUSCULOSKELETAL: As mentioned earlier. HEMATOLOGY/ONCOLOGY: No history of anemia. ENDOCRINE: No history of diabetes mellitus or hypothyroidism. CONSTITUTIONAL: As mentioned earlier. DERMATOLOGY: Negative. RHEUMATOLOGY: Negative. PSYCHIATRY: As mentioned earlier. PHYSICAL EXAMINATION: The patient is alert and oriented x3. Pulse 93, blood pressure 131/87, respirations 18, temperature 97.8, pulse ox 96% on room air. HEENT: Conjunctivae normal. Oral mucosa moist. NECK: No jugular venous distention. No carotid bruit. No lymph node enlargement. CARDIOVASCULAR: S1 and S2, muffled. No S3, no S4. RESPIRATORY: Breath sounds diminished at the bases. A few scattered rhonchi, no crackles. ABDOMEN: Soft, obese, nontender. No mass palpable. LEGS: No edema, no swelling. NERVOUS SYSTEM: Higher function as mentioned. Moves all 4 limbs. No focal motor deficits. Cranial nerves, vision diminished in the right eye and also significant diminishment of the eye movements also. LYMPHATICS: No lymphadenopathy of neck, axillae or groin. SKIN: No ulcers, rashes or bleeding. LABS: WBC 13.1, hemoglobin 15.6. Glucose 155. ASSESSMENT: 1. Possible acute cerebrovascular accident and rule out brain stem stroke. 2. Rule out demyelinating illness. 3. History of cerebrovascular accident, transient ischemic attack. 4. Continued ongoing nicotine dependence. 5. Obesity with body mass index of 57.6. 6. Increased random blood sugar. 7. Increased WBC. 8. History of asthma. 9. History of sleep apnea. 10. History of cerebrovascular accident, transient ischemic attack. 11. History of nicotine dependence. 12. FULL CODE. 13. Super morbid obesity with body mass index of 57.6. RECOMMENDATIONS AND DISCUSSION: This 46-year-old gentleman who presented with multiple complex medical issues, we will monitor the patient closely. Continue the current medications. Continue symptomatic treatment. Will obtain ophthalmology evaluation and as well as we will also obtain MRI of the brain and antiplatelet agents. complete neurovascular workup, neurology consultation, neuro checks. Prognosis guarded because of multiple complex medical issues. Smoking cessation has been recommended strongly with the family as well as. Continue to monitor. Further recommendations to follow. See orders for further details. Prognosis guarded. MTDD
--- NOTE | 2016-07-26 09:51 | US ---
EXAMINATION TYPE: US carotid duplex BILAT DATE OF EXAM: 07/26/2016 8:05 AM COMPARISON: NONE CLINICAL HISTORY: stroke. EXAM MEASUREMENTS: RIGHT: Peak Systolic Velocity (PSV) cm/sec ----- Right CCA: 71.6 ----- Right ICA: 63.8 ----- Right ECA: 82.7 ICA/CCA ratio: 0.9 RIGHT: End Diastole cm/sec ----- Right CCA: 15.5 ----- Right ICA: 20.7 ----- Right ECA: 18.0 LEFT: Peak Systolic Velocity (PSV) cm/sec ----- Left CCA: 69.3 ----- Left ICA: 85.4 ----- Left ECA: 115.4 ICA/CCA ratio: 1.2 LEFT: End Diastole cm/sec ----- Left CCA: 20.8 ----- Left ICA: 30.5 ----- Left ECA: 20.1 VERTEBRALS (direction of flow): Right Vertebral: Antegrade Left Vertebral: Antegrade Patient 425lbs with large thick neck, technically difficult exam. IMPRESSION: 1. Limited exam as discussed above. 2. Intimal thickening and focal areas of plaque bilaterally.
--- NOTE | 2016-07-26 10:27 | ECHOF ---
Referral Reason:Stroke MEASUREMENTS -------- HEIGHT: 182.9 cm WEIGHT: 192.8 kg BP: 135/83 RVIDd: 3.0 cm (< 3.3) IVSd: 1.4 cm (0.6 - 1.1) LVIDd: 4.2 cm (3.9 - 5.3) LVPWd: 1.4 cm (0.6 - 1.1) IVSs: 1.9 cm LVIDs: 2.6 cm LVPWs: 1.8 cm LA Diam: 3.7 cm (2.7 - 3.8) Ao Diam: 2.8 cm (2.0 - 3.7) AV Cusp: 2.3 cm (1.5 - 2.6) MV EXCURSION: 19.436 mm (> 18.000) MV EF SLOPE: 142 mm/s (70 - 150) EPSS: 0.3 cm MV E Kolby: 0.91 m/s MV DecT: 208 ms MV A Kolby: 0.56 m/s MV E/A Ratio: 1.63 FINDINGS -------- Sinus rhythm. This was a technically difficult study with suboptimal views. The left ventricular size is normal. There is moderate concentric left ventricular hypertrophy. Overall left ventricular systolic function is low-normal with, an EF between 50 - 55 %. The right ventricle is normal in size. The left atrial size is normal. The right atrium was not well visualized. 1.5mg of Definity was utilized for enhancement of images Aortic valve is trileaflet and is mildly thickened. Mild mitral annular calcification present. The tricuspid valve was not well visualized. The pulmonic valve was not well visualized. The aortic root size is normal. The pericardium is normal. CONCLUSIONS -------- 1. Sinus rhythm. 2. Aortic valve is trileaflet and is mildly thickened. 3. Mild mitral annular calcification present. 4. The tricuspid valve was not well visualized. 5. The pulmonic valve was not well visualized. 6. The aortic root size is normal. 7. The pericardium is normal. 8. This was a technically difficult study with suboptimal views. 9. The left ventricular size is normal. 10. There is moderate concentric left ventricular hypertrophy. 11. Overall left ventricular systolic function is low-normal with, an EF between 50 - 55 %. 12. The right ventricle is normal in size. 13. The left atrial size is normal. 14. The right atrium was not well visualized. 15. 1.5mg of Definity was utilized for enhancement of images STACKING MACHINE OPERATOR: Saadia Phelps RDCS
[2016-07-26] MEDS: PANTOPRAZOLE 40 MG TABLET PO SCH (10:58)
[2016-07-26 11:09] LABS: Appearance,Urine Clear (Clear); Bilirubin,Urine Negative (Negative); Glucose,Urine (UA) Negative (Negative); Ketones,Urine Negative (Negative); Leukocyte Esterase,Urine Negative (Negative); Nitrite,Urine Negative (Negative); PH, Urine 6.5 (5.0-8.0); Protein,Urine Trace (Negative); UA Billing (MACRO vs. MICRO) CHEM; Urobilinogen,Urine <2.0 mg/dL (<2.0)
[2016-07-26] MEDS: FOLIC ACID 1 MG TAB PO SCH (11:37)
[2016-07-26] MEDS: MULTIVITAMINS, THERA 1 EACH TAB PO SCH (11:37)
[2016-07-26] MEDS ORDERED: IPRATROPIUM-ALBUTEROL 3 ML NEB INHALATION PRN (16:32)
--- NOTE | 2016-07-26 17:30 | PN ---
DATE OF SERVICE: 07/26/2016 This 46-year-old gentleman who was admitted with diminished vision suspected to have brainstem stroke. The patient is being closely monitored at this time. Neurology and cardiology evaluations in progress at this time. The carotid Doppler showed limited exam; intimal thickening; technically difficult exam. Otherwise, a 2-D echo with Doppler was done which showed ejection fraction of 50% to 55%. MRI is pending at this time. Past medical history reviewed. REVIEW OF SYSTEMS: ENT: As mentioned earlier. CARDIOVASCULAR SYSTEM: As mentioned earlier. RESPIRATORY SYSTEM: No cough, hemoptysis. GI: As mentioned earlier. GI: No dysuria. NERVOUS SYSTEM: As mentioned earlier. Current medications are reviewed and include: 1. Tylenol 500 q.6 p.r.n. 2. Xanax 0.25 t.i.d. 3. Aspirin 325. 4. Folic acid 1 mg. 5. Multivitamins. 6. Protonix 40 mg daily. PHYSICAL EXAMINATION: Patient is alert and oriented x3. Pulse is 76, blood pressure 134/70, respiration 18, temperature 97.4, pulse ox 94% on room air. HEENT: Conjunctivae normal. NECK: No jugular venous distention. CARDIOVASCULAR SYSTEM: S1, S2 muffled. RESPIRATORY SYSTEM: Breath sounds diminished at the bases. A few scattered rhonchi and crackles. ABDOMEN: Soft, nontender. No mass palpable. LEGS: No edema. No swelling. NERVOUS SYSTEM: Higher functions as mentioned earlier. Dysconjugation of eye movements present. Vision is still diminished on the right eye. Minimal nystagmus noted. Moves all 4 limbs. No focal motor abnormality. No sensory deficit abnormality. No cerebellar signs. SKIN: No ulcer, rash, bleeding. LYMPHATICS: No lymph node palpable in neck, axillae or groin. LABS: Triglycerides 231. UA noted. Drug screen is negative. Glucose 126. ASSESSMENT: 1. Acute cerebrovascular incident involving the brainstem and acute brainstem stroke. 2. Rule out demyelinating illness. 3. Diminished vision in the right eye. 4. History of cerebrovascular accident, transient ischemic attack. 5. Continued ongoing nicotine dependence. 6. Obesity; body mass index of 57.6. 7. Increased random blood sugar. 8. Increased white count. 9. History of asthma. 10. History of sleep apnea. 11. Cerebrovascular accident, transient ischemic attack. 12. History of nicotine dependence. 13. Super morbid obesity with body mass index of 57.6. 14. FULL CODE. RECOMMENDATIONS AND DISCUSSION: In this 46-year-old gentleman who presented with multiple complex medical issues, we will monitor the patient closely, continue the current medication, continue with symptomatic treatment, continue with aspirin. Will add Lipitor to the current regimen. Otherwise, neurovascular workup is noted. Neurology consultation ongoing as well as ophthalmologic consultation. Prognosis guarded because of multiple complex medical issues. See orders for further details. Further recommendations to follow. Discussed with the patient, who understands and agrees. CAMRON
[2016-07-26] MEDS ORDERED: RX INFO: IV CONTRAST WAS GIVEN 1 EACH MISC MISCELLANE PRN (19:34)
--- NOTE | 2016-07-26 20:01 | CONS ---
DATE OF CONSULTATION: 07/26/2016 HISTORY: This is a 46-year-old white male who states that when he awoke yesterday morning he noticed double vision occurring at all times. The patient states that it was present in all gaze positions and was most evident trying to read something. The patient states that his vision was otherwise clear without any blurriness; however, the double vision remained throughout the entire day. Upon awakening this morning the patient stated that it had had improved significantly, that the double is no longer evident at any time even when reading. He denies any history of blurriness either yesterday or today. EXAM: Visual acuity measured 20/20 bilaterally. The pupil pupils were equal and reactive to light. There was no afferent pupillary defect. Extraocular movements were full in all gaze positions. I could not elicit diplopia in any gaze position. On penlight exam, the anterior segments were "clear and quiet" bilaterally. Fundus exam revealed normal appearing maculae, vessels and discs. Diplopia. This episode of diplopia according to the patient was present throughout the day and was not accompanied by any other neurological symptoms. As it is no longer present currently it is difficult to determine exactly what might have been the cause. I could not elicit any evidence of muscle weakness in today's exam and his vision as he states has returned to normal. I agree that he should be evaluated for possible evidence of a stroke and neurology consult is pending. Upon discharge I would like to see this patient for more formalized visual field testing and we will determine if any other intervention is necessary. Thank you for this most kind consultation.
[2016-07-26] MEDS: IPRATROPIUM-ALBUTEROL 3 ML NEB INHALATION SCH (20:24)
[2016-07-26] MEDS ORDERED: ATORVASTATIN 10 MG TAB PO SCH (21:00)
--- NOTE | 2016-07-26 21:01 | CT ---
EXAMINATION TYPE: CT brain wo con DATE OF EXAM: 07/26/2016 8:55 PM COMPARISON: Yesterday HISTORY: Right eye vision loss. CT DLP: 1552.60 mGycm Automated exposure control for dose reduction was used. FINDINGS: There is a 1 cm area of hypodensity in the right caudate nucleus extending into the internal capsule. There is no mass effect nor midline shift. There is no sign of intracranial hemorrhage. The calvariu m is intact. There is a 1 cm area of hypodensity also in the medial right thalamus adjacent to the th ird ventricle. IMPRESSION: Lacunar infarcts on the right side. This is stable compared to old exam. No sign of a new infarct.
--- NOTE | 2016-07-26 21:03 | CT ---
EXAMINATION TYPE: CT angio head neck DATE OF EXAM: 07/26/2016 8:56 PM COMPARISON: NONE HISTORY: Right eye vision loss. CT DLP: 1552.60 mGycm Automated exposure control for dose reduction was used. TECHNIQUE: Performed with IV Contrast, patient injected with 65 mL of Omnipaque 350. There are 3-D post processed images.. FINDINGS: There is normal branching pattern of the great vessels on the aortic arch. There is bilateral patency of the vertebral arteries. There is patency of the common internal and external carotid arteries. Th ere is minimal plaque at the carotid artery bifurcations with narrowing less than 10%. There is no ev idence of dissection. The remainder of the exam is unremarkable. IMPRESSION: MINIMAL PLAQUE AT THE CAROTID ARTERY BIFURCATIONS WITH LUMINAL NARROWING LESS THAN 10%. No evidence o f any significant stenosis.
[2016-07-27 06:18] LABS: Basophils % (A) 0 %; CH 32.7; CHCM 35.3; Eosinophils # (A) 0.1 k/uL (0-0.7); Eosinophils % (A) 1 %; HCT 43.2 % (39.0-53.0); HDW 2.65; Luc # (Auto) 0.19; Luc % (Auto) 2; Lymphocytes # (A) 2.6 k/uL (1.0-4.8); Lymphocytes % (A) 25 %; MCH 32.3 pg (25.0-35.0); MCHC 34.7 g/dL (31.0-37.0); Mean Platelet Volume 6.2; Monocytes # (A) 0.6 k/uL (0-1.0); Monocytes % (A) 5 %; Neutrophils % (A) 67 %; RBC 4.64 m/uL (4.30-5.90); RDW 12.7 % (11.5-15.5); WBC 10.4 k/uL (3.8-10.6); WBC (Perox) 9.91
[2016-07-27] MEDS: PANTOPRAZOLE 40 MG TABLET PO SCH (06:31)
[2016-07-27 06:35] LABS: Anion Gap 9 mmol/L; Blood Urea Nitrogen 14 mg/dL (9-20); Calcium 8.4 mg/dL (8.4-10.2); Carbon Dioxide 28 mmol/L (22-30); Chloride 104 mmol/L (98-107); Glucose 126 mg/dL (74-99); Non-African American GFR(MDRD) >60 (>60 ml/min/1.73 sqM); Sodium 141 mmol/L (137-145)
--- NOTE | 2016-07-27 07:45 | CONS ---
DATE OF CONSULTATION: 07/26/2016 CHIEF COMPLAINT: Visual changes. HISTORY OF PRESENT ILLNESS: Mr. Muse is a 46-year-old male who is being evaluated by the neurology service per the request of Dr. Tran for visual changes. The patient states that he has been having visual changes over the past couple of days. He describes his changes as blurred vision with occasional double vision. He denies any eye pain and denies any lateralizing numbness or weakness. The patient does have a previous history of a stroke several years ago. At that time, he had left hemiparesis and slurred speech, but he states that the symptoms did resolve with extensive physical therapy. He does take aspirin 325 mg daily at home. On this admission, a CT scan of the brain was done, which showed an old infarct involving the right basal ganglia. A carotid Doppler was done, which was quite limited due to his body habitus. The patient is morbidly obese. His CBC was normal except for mild leukocytosis at 10.8. His comprehensive metabolic profile was normal except for mild hyperglycemia at 1.55. His fasting lipid panel showed mild dyslipidemia with cholesterol of 231, but his LDL was normal. His urinalysis and urine drug screen were normal. The patient was admitted for further work-up and management. An MRI of the brain has been ordered, but he could not be done due to his body habitus. At the time of my evaluation, the patient is lying in his bed and appears to be in no acute distress. He denies any changes in his visual symptoms since his admission. PAST MEDICAL HISTORY: Stroke, gastroesophageal reflux disease, asthma, obstructive sleep apnea. SOCIAL HISTORY: The patient is a current every day smoker. He denies any alcohol or drug use. FAMILY HISTORY: Positive for cancer and renal disease. HOME MEDICATIONS: Reviewed in the chart. ALLERGIES: HEPARIN. REVIEW OF SYSTEMS: CONSTITUTIONAL: Negative. EYES: As mentioned above. ENT: Negative. CARDIOVASCULAR: Negative. RESPIRATORY: Positive for occasional shortness of breath. NEUROLOGICAL: As mentioned above. GASTROINTESTINAL: Positive for occasional heartburn. GENITOURINARY: Negative. PSYCHIATRIC: Negative. ENDOCRINE: Negative. MUSCULOSKELETAL: Positive for occasional joint pain. Dermatological: Negative. PHYSICAL EXAM: Vital signs show a temperature of 98.7, pulse 80, respirations 20, blood pressure 125/73. GENERAL APPEARANCE: The patient is a morbidly obese male who appears to be in no acute distress. HEENT: Normocephalic, atraumatic, no facial asymmetry is seen. Extraocular muscle testing showed decreased lateral gaze involving the left eye. Neck is supple with no masses felt. CARDIOVASCULAR: Regular rate and rhythm. ABDOMEN: Obese, nontender, nondistended. Extremities showed trace edema with no clubbing seen. NEUROLOGICAL EXAM: The patient is alert, aware, and oriented x3. Speech is slightly slurred. Language testing was normal. Cranial nerve testing was normal except for extraocular muscle testing as mentioned above. Sensory exam was normal to light touch in all 4 extremities. No lateralizing weakness is seen. No tremors or seizure-like activity is noticed. IMPRESSION: 1. Blurred vision. 2. Diplopia. 3. History of ischemic stroke. 4. Morbid obesity. 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 The etiology is likely ischemic and this could be due to a small brainstem infarct versus microvascular ischemia involving the sixth cranial nerve. An MRI of the brain could not be obtained due to his body habitus. I will order a repeat CT scan of the brain and I will also order a CT angiogram of the brain and neck as his carotid Doppler was quite limited due to his body habitus. I will switch his aspirin to Plavix 75 mg daily. An ophthalmology consultation is pending. I will also order a myasthenia gravis panel to rule out any neuromuscular junction disorder although this is low on the differential diagnosis. Continue neurologic checks. I will continue to follow with you. Further recommendations to follow. Thank you for allowing me to participate in the care of your patient. If you have any questions, please feel free to contact me.
[2016-07-27] MEDS: IPRATROPIUM-ALBUTEROL 3 ML NEB INHALATION SCH ×3 (08:47→12:45)
[2016-07-27] MEDS ORDERED: CLOPIDOGREL 75 MG TAB PO SCH (09:00)
[2016-07-27 09:34] VITALS: RESP 20
[2016-07-27] MEDS: FOLIC ACID 1 MG TAB PO SCH (11:14)
[2016-07-27] MEDS: MULTIVITAMINS, THERA 1 EACH TAB PO SCH (11:14)
[2016-07-27 12:24] VITALS: BP 116/76; PULSE 78; TEMP 97.6
--- NOTE | 2016-07-27 18:31 | PN ---
CHIEF COMPLAINT: Visual changes. This 46-year-old male continuing to be evaluated by the neurology service for visual changes. He has been having visual changes over the course of a couple of days. There was blurred vision with occasional double vision. He denied any pain or lateralizing numbness or weakness. He has a history of stroke several years ago. His symptoms resolved since that stroke. Initial CT showed an old infarct of the right basal ganglia. A carotid Doppler was limited due to body habitus. An MRI of the brain was ordered but again, due to body habitus could not be accomplished. At the time of my exam, he is dressed and sitting in his bedside chair awaiting the release from hospital. He denies any worsening symptoms. His visual changes are minimal now. CT of the brain showed no new acute intracranial processes. A CTA of the head and neck showed no signs of stenosis or dissection. PHYSICAL EXAM: VITAL SIGNS: Temperature 98.7, pulse 80, respirations 20, blood pressure 125/73. GENERAL APPEARANCE: This is a morbidly obese male in no acute distress. HEENT: Normocephalic, atraumatic. No facial asymmetry. He has decreased lateral gaze, of the left eye. CARDIOVASCULAR: Rate and rhythm are regular. ABDOMEN: Obese, nontender, nondistended. NEUROLOGICAL: He is alert and oriented times three. Speech and language are normal. Extraocular muscle testing as above. Sensory exam is normal to light touch. Extremities: There is no lateralizing weakness. No tremors. ( ). IMPRESSION: 1. Blurred vision. 2. Diplopia. 3. History of ischemic stroke. 4. Morbid obesity. 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 A small brain stem infarct could not be absolutely ruled out. He will continue Plavix. An ophthalmology consult was placed and he has been examined and cleared. We had ordered a myasthenia gravis panel to rule out any neuromuscular junction disorder and the results of that are still pending. I performed a history and physical examination of this patient and discussed the same with the dictator. I agree with the dictator's note. Any additional findings/opinions, etc. will be noted.
[2016-07-31 09:26] LABS: Mis test requested (Blood) MyastheniaGravisPnl1
--- NOTE | 2016-07-31 14:15 | DS ---
DATE OF ADMISSION: 07/25/2016 DATE OF DISCHARGE: 07/27/2016 FINAL DIAGNOSES: 1. Acute cerebrovascular accident noted the brain stem causing diplopia and visual difficulties. 2. History of cerebrovascular accident, transient ischemic attack. 3. Continued ongoing nicotine dependence. 4. Obesity, body mass index of 57.6. 5. Increased random blood sugar. 6. Increased WBC. 7. History of asthma. 8. History of sleep apnea. 9. Cerebrovascular accident, transient ischemic attack. 10. History of nicotine dependence. 11. Super morbid obesity with body mass index of 57.6. 12. FULL CODE. DISCHARGE DISPOSITION: The patient will be discharged in a stable condition with guarded prognosis. HISTORY OF PRESENT ILLNESS: This 46 -year-old gentleman with a past medical history of multiple medical problems presented with visual difficulties and as well as apparent diplopia. The patient had some disconjugate eye movements but otherwise the CT scan did not show any obvious stroke and neurology saw the patient also. also saw the patient. CT Angio was negative, however MRI could not be done and they recommended the patient to follow up with outpatient setting for outpatient MRI, open MRI. On exam, vital signs stable. CARDIOVASCULAR: S1, S2. n ABDOMEN: Soft. Nervous system: No focal deficits at this time. NS: No foal deficit. Discharge advice: 1. Diet is cardiac. 2. Activity limited until follow-up. Follow-up. 3. Follow up with Dr. Bai in 2 to 3 days. 4. Follow up with Dr. Yoder, ophthalmology and Dr. Cespedes as advised. 5. Medications will be Ecotrin 81 mg p.o. daily. 6. Lipitor 10 mg every q.h.s. 7. zithromax 250 mg p.o. daily as previously. 8. Plavix 75 milligrams p.o. daily. 9. Folic acid 1 mg. 10. Multivitamins one p.o. daily. 11. Omeprazole 20 mg p.o. daily. MTDD
== END 2016-07-27 15:25 | disposition home or self-care (01) | DRG 65 ==
LOC: EC 21:18 → 6SEL 23:58
PROVIDERS: ADMIT Hospitalist; ATTEND Hospitalist
DX: I63.9 Cerebral infarction, unspecified (principal); Z68.43 Body mass index [BMI] 50.0-59.9, adult; E66.01 Morbid (severe) obesity due to excess calories; D72.829 Elevated white blood cell count, unspecified; E78.5 Hyperlipidemia, unspecified; F17.200 Nicotine dependence, unspecified, uncomplicated; G47.33 Obstructive sleep apnea (adult) (pediatric); H53.2 Diplopia; H54.7 Unspecified visual loss; Z86.73 Personal history of transient ischemic attack (TIA), and cerebral infarction without residual deficits; J45.909 Unspecified asthma, uncomplicated; K21.9 Gastro-esophageal reflux disease without esophagitis; Z79.82 Long term (current) use of aspirin; Z79.899 Other long term (current) drug therapy
CPT/HCPCS: 36415; 70450; 70496; 70498; 71020; 80048; 80053; 80061; 80306; 81003; 82550; 82553; 83519; 84484; 85025; 85610; 85730; 86255; 93306; 93880; 94640; 99285